=== PATIENT | female | born 1965 | race Caucasian/White ===

== ENCOUNTER 2017-09-04 08:36 | Emergency (ER) | payer BC ==
[~2017-09-04] VITALS: Ht 157.5 cm; Wt 69.4 kg
[2017-09-04 08:37] VITALS: Ht 157.5 cm; Wt 69.4 kg
--- NOTE | 2017-09-04 09:10 | ERD ---
ER Documentation Chief Complaint Chief Complaint lt hand and wrist swelling since monday HPI 51y/o female patient with no significant medical history,presents to the emergency department with friend c/o left hand and wrist pain, that started 3 days ago after a mechanical fall while she was gardening at her house. pain is dull, rated 8/10, radiated to entire upper extremity. The symptoms are associated with decreased range of motion and edema. Denies fever, chills, N/V/ D. No history of previous episodes. Treatment attempted: Tylenol with mild improvement of the symptoms ROS SYSTEMIC symptoms: no fever, chills, no night sweats, no weight loss EYE symptoms: No blurred vision, no eye discharge OTOLARYNGEAL symptoms: No hearing loss. No ear pain, no sore throat CARDIOVASCULAR symptoms: No chest pain or discomfort, no palpitations. PULMONARY symptoms: No dyspnea, no cough, no wheezing. GASTROINTESTINAL symptoms: No abdominal pain, no nausea, no vomiting, no diarrhea MUSCULOSKELETAL symptoms: Per HPI NEUROLOGY symptoms: No confusion, no syncope, no numbness or tingling. SKIN no rashes All systems reviewed and are negative except as per history of present illness. Medications Home Meds Active Scripts Hydrocodone/Acetaminophen ([place] 5-325 Tablet) 1 Each Tablet, 1 TAB PO Q6H Y for PAIN, #20 TAB Prov:SARIKA RM MD 09/04/17 Allergies Allergies: Coded Allergies: No Known Allergy (Unverified , 09/04/17) FmHx Denies family history of diabetes, hypertension, heart disease Physical Exam Vitals Vital Signs Date Time Temp Pulse Resp B/P Pulse Ox O2 Delivery O2 Flow Rate FiO2 09/04/17 08:37 98.2 82 18 173/88 98 Physical Exam Patient is in no acute distress, vital signs stable. Alert and fully oriented. EYES: PERRLA, EOMI, Sclera and conjunctiva appear normal. EARS: Canals clear, tympanic membranes WNL THROAT: Normal oropharynx. NECK: Supple, No lymphadenopathy. Full ROM without pain or tenderness. HEART: RRR, no rubs, murmurs, clicks or gallops. LUNGS: Clear to auscultation. ABDOMEN: Soft, non-tender without masses or hepatosplenomegaly. EXTREMITIES: No edema bilaterally. Left hand: Deformity seen at the wrist, with marked edema and decreased range of motion. Neurovascular in tact Results 24 hrs DIAGNOSTIC IMAGING REPORT Patient: IVON MEADOWS : 1965 Age: 51 Sex: F MR #: [id number] DOS: 09/04/17914 Ordering MD: SARIKA RM MD Location: FTE Room/Bed: PROCEDURE: XR Left Hand. CLINICAL INDICATION: Trauma due to a fall. Left hand pain. TECHNIQUE: Three views. Frontal lateral and oblique images of the left hand were obtained. COMPARISON: No prior studies are available for comparison. FINDINGS: There is an acute transverse fracture through the distal metaphysis of the radius with mild angulation apex-anterior. There is no other fracture and there is no dislocation. There is soft tissue swelling overlying the fracture Articular surfaces are intact. There is no lytic or blastic lesion. There is no radiopaque foreign body. IMPRESSION: 1. Acute transverse fracture through the distal metaphysis of the radius with mild angulation apex-anterior. 2. Overlying soft tissue swelling. 3. Otherwise unremarkable images of the left hand. RPTAT: QQ .Tevin Yates MD, MD Date Time Electronically viewed and signed by .Tevin Yates MD, MD on 09/04/2017 09:58 .R/ CC: SARIKA RM MD [place] [address] Radiology Main Line: [phone] DIAGNOSTIC IMAGING REPORT Patient: IVON MEADOWS : 1965 Age: 51 Sex: F MR #: [id number] DOS: 09/04/17914 Ordering MD: SARIKA RM MD Location: FTE Room/Bed: PROCEDURE: Left wrist radiographs. CLINICAL INDICATION: Trauma due to a fall. Left wrist pain. TECHNIQUE: 4 views. Frontal, lateral, and oblique. Scaphoid view. COMPARISON: No prior studies are available for comparison. FINDINGS: There is an acute transverse fracture through the distal metaphysis of the radius with mild angulation apex-anterior. There is no other fracture and there is no dislocation. There is soft tissue swelling overlying the fracture. Articular surfaces are intact. There is no lytic or blastic lesion. There is no radiopaque foreign body. IMPRESSION: 1. Acute transverse fracture through the distal metaphysis of the radius with mild angulation apex-anterior. 2. Overlying soft tissue swelling. 3. Otherwise unremarkable images of the left wrist. RPTAT: QQ .Tevin Yates MD, MD Date Time Electronically viewed and signed by .Tevin Yates MD, MD on 09/04/2017 10:00 .R/ CC: SARIKA RM MD Procedures/MDM Splint evaluation: Type: Short arm posterior Location: Left arm Position: good alignment in anatomical position Neurovascular intact 51y/o female patient umremarkable medical history, presents to the ED c/o left wrist pain and edema for 3 days. Vital signs stable, Physical exam unremarkable except for left wrist with deformity, edema, tender to palpation and decreased range of motion. Differential diagnosis include but not limited to: Ligament/tendon injury, dislocation, fracture, contusion. Less likely infection like cellulitis or abscess or septic arthritis. Pertinent Data: X-Rays: left wrist IMPRESSION: 1. Acute transverse fracture through the distal metaphysis of the radius with mild angulation apex-anterior. 2. Overlying soft tissue swelling. 3. Otherwise unremarkable images of the left hand. Physical examination and clinical presentation consistent most likely with left wrist fracture. During the ED course the patient had a splint placed with presenting overall improvement of the symptoms. Results and medical impression discussed with patient who agrees with management. The patient will be discharged home with a Rx for [place] needed for pain and a referral for orthopedic evaluation in the next 2-4 days Side effects of prescribed narcotic medications (drowsiness, constipation, habituation) were reviewed. Side effects of prescribed NSAID medication (GI distress, edema, bleeding, HTN) were reviewed. If symptoms persist, worsen or new symptoms develop, then patient is instructed to follow-up with the primary care provider. If the patient is unable to see the primary care provider, then return to the ED immediately. Departure Diagnosis: Primary Impression: Left radial fracture Condition: Stable Additional Instructions: Muchas baudilio por [facility] para sharma servicio. Esperamos que en sharma visita a la anusha de emergencia sharma problema medico haya sido solucionado y que se sienta mucho mejor. Para estar seguros que sharma mejoria sigue en proceso, le pedimos el favor de hacer joey francois de seguimiento medico con sharma doctor primario en los proximos 2-4 dean. Lleve con usted estos documentos y las medicinas recetadas. Si dat sintomas empeoran y no puede vincenzo a sharma doctor, por favor regrese a anusha de emergencia. En aaron que usted no tenga un mdico de atencin primaria: Llame al mdico o clnica comunitaria de referencia que aparece abajo chava las horas de consultorio para hacer joey francois para que le vean. CLINICAS: [facility] [phone] [facility] [phone] [address] [facility] [phone] [facility] [phone] [address] [facility] [phone] [address] [facility]. [phone] MD Sep 04, 2017 09:10
--- NOTE | 2017-09-04 09:10 | ERD ---
ER Documentation Chief Complaint Chief Complaint lt hand and wrist swelling since monday HPI 51y/o female patient with no significant medical history,presents to the emergency department with friend c/o left hand and wrist pain, that started 3 days ago after a mechanical fall while she was gardening at her house. pain is dull, rated 8/10, radiated to entire upper extremity. The symptoms are associated with decreased range of motion and edema. Denies fever, chills, N/V/ D. No history of previous episodes. Treatment attempted: Tylenol with mild improvement of the symptoms ROS SYSTEMIC symptoms: no fever, chills, no night sweats, no weight loss EYE symptoms: No blurred vision, no eye discharge OTOLARYNGEAL symptoms: No hearing loss. No ear pain, no sore throat CARDIOVASCULAR symptoms: No chest pain or discomfort, no palpitations. PULMONARY symptoms: No dyspnea, no cough, no wheezing. GASTROINTESTINAL symptoms: No abdominal pain, no nausea, no vomiting, no diarrhea MUSCULOSKELETAL symptoms: Per HPI NEUROLOGY symptoms: No confusion, no syncope, no numbness or tingling. SKIN no rashes All systems reviewed and are negative except as per history of present illness. Medications Home Meds Active Scripts Hydrocodone/Acetaminophen ([place] 5-325 Tablet) 1 Each Tablet, 1 TAB PO Q6H Y for PAIN, #20 TAB Prov:SARIKA RM MD 09/04/17 Allergies Allergies: Coded Allergies: No Known Allergy (Unverified , 09/04/17) FmHx Denies family history of diabetes, hypertension, heart disease Physical Exam Vitals Vital Signs Date Time Temp Pulse Resp B/P Pulse Ox O2 Delivery O2 Flow Rate FiO2 09/04/17 08:37 98.2 82 18 173/88 98 Physical Exam Patient is in no acute distress, vital signs stable. Alert and fully oriented. EYES: PERRLA, EOMI, Sclera and conjunctiva appear normal. EARS: Canals clear, tympanic membranes WNL THROAT: Normal oropharynx. NECK: Supple, No lymphadenopathy. Full ROM without pain or tenderness. HEART: RRR, no rubs, murmurs, clicks or gallops. LUNGS: Clear to auscultation. ABDOMEN: Soft, non-tender without masses or hepatosplenomegaly. EXTREMITIES: No edema bilaterally. Left hand: Deformity seen at the wrist, with marked edema and decreased range of motion. Neurovascular in tact Results 24 hrs DIAGNOSTIC IMAGING REPORT Patient: IVON MEADOWS : 1965 Age: 51 Sex: F MR #: [id number] DOS: 09/04/17914 Ordering MD: SARIKA RM MD Location: FTE Room/Bed: PROCEDURE: XR Left Hand. CLINICAL INDICATION: Trauma due to a fall. Left hand pain. TECHNIQUE: Three views. Frontal lateral and oblique images of the left hand were obtained. COMPARISON: No prior studies are available for comparison. FINDINGS: There is an acute transverse fracture through the distal metaphysis of the radius with mild angulation apex-anterior. There is no other fracture and there is no dislocation. There is soft tissue swelling overlying the fracture Articular surfaces are intact. There is no lytic or blastic lesion. There is no radiopaque foreign body. IMPRESSION: 1. Acute transverse fracture through the distal metaphysis of the radius with mild angulation apex-anterior. 2. Overlying soft tissue swelling. 3. Otherwise unremarkable images of the left hand. RPTAT: QQ .Tevin Yates MD, MD Date Time Electronically viewed and signed by .Tevin Yates MD, MD on 09/04/2017 09:58 .R/ CC: SARIKA RM MD [place] [address] Radiology Main Line: [phone] DIAGNOSTIC IMAGING REPORT Patient: IVON MEADOWS : 1965 Age: 51 Sex: F MR #: [id number] DOS: 09/04/17914 Ordering MD: SARIKA RM MD Location: FTE Room/Bed: PROCEDURE: Left wrist radiographs. CLINICAL INDICATION: Trauma due to a fall. Left wrist pain. TECHNIQUE: 4 views. Frontal, lateral, and oblique. Scaphoid view. COMPARISON: No prior studies are available for comparison. FINDINGS: There is an acute transverse fracture through the distal metaphysis of the radius with mild angulation apex-anterior. There is no other fracture and there is no dislocation. There is soft tissue swelling overlying the fracture. Articular surfaces are intact. There is no lytic or blastic lesion. There is no radiopaque foreign body. IMPRESSION: 1. Acute transverse fracture through the distal metaphysis of the radius with mild angulation apex-anterior. 2. Overlying soft tissue swelling. 3. Otherwise unremarkable images of the left wrist. RPTAT: QQ .Tevin Yates MD, MD Date Time Electronically viewed and signed by .Tevin Yates MD, MD on 09/04/2017 10:00 .R/ CC: SARIKA RM MD Procedures/MDM Splint evaluation: Type: Short arm posterior Location: Left arm Position: good alignment in anatomical position Neurovascular intact 51y/o female patient umremarkable medical history, presents to the ED c/o left wrist pain and edema for 3 days. Vital signs stable, Physical exam unremarkable except for left wrist with deformity, edema, tender to palpation and decreased range of motion. Differential diagnosis include but not limited to: Ligament/tendon injury, dislocation, fracture, contusion. Less likely infection like cellulitis or abscess or septic arthritis. Pertinent Data: X-Rays: left wrist IMPRESSION: 1. Acute transverse fracture through the distal metaphysis of the radius with mild angulation apex-anterior. 2. Overlying soft tissue swelling. 3. Otherwise unremarkable images of the left hand. Physical examination and clinical presentation consistent most likely with left wrist fracture. During the ED course the patient had a splint placed with presenting overall improvement of the symptoms. Results and medical impression discussed with patient who agrees with management. The patient will be discharged home with a Rx for [place] needed for pain and a referral for orthopedic evaluation in the next 2-4 days Side effects of prescribed narcotic medications (drowsiness, constipation, habituation) were reviewed. Side effects of prescribed NSAID medication (GI distress, edema, bleeding, HTN) were reviewed. If symptoms persist, worsen or new symptoms develop, then patient is instructed to follow-up with the primary care provider. If the patient is unable to see the primary care provider, then return to the ED immediately. Departure Diagnosis: Primary Impression: Left radial fracture Condition: Stable Additional Instructions: Muchas baudilio por [facility] para sharma servicio. Esperamos que en sharma visita a la anusha de emergencia sharma problema medico haya sido solucionado y que se sienta mucho mejor. Para estar seguros que sharma mejoria sigue en proceso, le pedimos el favor de hacer joey francois de seguimiento medico con sharma doctor primario en los proximos 2-4 dean. Lleve con usted estos documentos y las medicinas recetadas. Si dat sintomas empeoran y no puede vincenzo a sharma doctor, por favor regrese a anusha de emergencia. En aaron que usted no tenga un mdico de atencin primaria: Llame al mdico o clnica comunitaria de referencia que aparece abajo chava las horas de consultorio para hacer joey francois para que le vean. CLINICAS: [facility] [phone] [facility] [phone] [address] [facility] [address] [address] [address] [facility] [phone] [facility] [phone] [facility] [phone] [address] [facility]. [phone] MD Sep 04, 2017 09:10
--- NOTE | 2017-09-04 09:10 | ERD ---
ER Documentation Chief Complaint Chief Complaint lt hand and wrist swelling since monday HPI 51y/o female patient with no significant medical history,presents to the emergency department with friend c/o left hand and wrist pain, that started 3 days ago after a mechanical fall while she was gardening at her house. pain is dull, rated 8/10, radiated to entire upper extremity. The symptoms are associated with decreased range of motion and edema. Denies fever, chills, N/V/ D. No history of previous episodes. Treatment attempted: Tylenol with mild improvement of the symptoms ROS SYSTEMIC symptoms: no fever, chills, no night sweats, no weight loss EYE symptoms: No blurred vision, no eye discharge OTOLARYNGEAL symptoms: No hearing loss. No ear pain, no sore throat CARDIOVASCULAR symptoms: No chest pain or discomfort, no palpitations. PULMONARY symptoms: No dyspnea, no cough, no wheezing. GASTROINTESTINAL symptoms: No abdominal pain, no nausea, no vomiting, no diarrhea MUSCULOSKELETAL symptoms: Per HPI NEUROLOGY symptoms: No confusion, no syncope, no numbness or tingling. SKIN no rashes All systems reviewed and are negative except as per history of present illness. Medications Home Meds Active Scripts Hydrocodone/Acetaminophen ([place] 5-325 Tablet) 1 Each Tablet, 1 TAB PO Q6H Y for PAIN, #20 TAB Prov:SARIKA RM MD 09/04/17 Allergies Allergies: Coded Allergies: No Known Allergy (Unverified , 09/04/17) FmHx Denies family history of diabetes, hypertension, heart disease Physical Exam Vitals Vital Signs Date Time Temp Pulse Resp B/P Pulse Ox O2 Delivery O2 Flow Rate FiO2 09/04/17 08:37 98.2 82 18 173/88 98 Physical Exam Patient is in no acute distress, vital signs stable. Alert and fully oriented. EYES: PERRLA, EOMI, Sclera and conjunctiva appear normal. EARS: Canals clear, tympanic membranes WNL THROAT: Normal oropharynx. NECK: Supple, No lymphadenopathy. Full ROM without pain or tenderness. HEART: RRR, no rubs, murmurs, clicks or gallops. LUNGS: Clear to auscultation. ABDOMEN: Soft, non-tender without masses or hepatosplenomegaly. EXTREMITIES: No edema bilaterally. Left hand: Deformity seen at the wrist, with marked edema and decreased range of motion. Neurovascular in tact Results 24 hrs DIAGNOSTIC IMAGING REPORT Patient: IVON MEADOWS : 1965 Age: 51 Sex: F MR #: [id number] DOS: 09/04/17914 Ordering MD: SARIKA RM MD Location: FTE Room/Bed: PROCEDURE: XR Left Hand. CLINICAL INDICATION: Trauma due to a fall. Left hand pain. TECHNIQUE: Three views. Frontal lateral and oblique images of the left hand were obtained. COMPARISON: No prior studies are available for comparison. FINDINGS: There is an acute transverse fracture through the distal metaphysis of the radius with mild angulation apex-anterior. There is no other fracture and there is no dislocation. There is soft tissue swelling overlying the fracture Articular surfaces are intact. There is no lytic or blastic lesion. There is no radiopaque foreign body. IMPRESSION: 1. Acute transverse fracture through the distal metaphysis of the radius with mild angulation apex-anterior. 2. Overlying soft tissue swelling. 3. Otherwise unremarkable images of the left hand. RPTAT: QQ .Tevin Yates MD, MD Date Time Electronically viewed and signed by .Tevin Yates MD, MD on 09/04/2017 09:58 .R/ CC: SARIKA RM MD [place] [address] Radiology Main Line: [phone] DIAGNOSTIC IMAGING REPORT Patient: IVON MEADOWS : 1965 Age: 51 Sex: F MR #: [id number] DOS: 09/04/17914 Ordering MD: SARIKA RM MD Location: FTE Room/Bed: PROCEDURE: Left wrist radiographs. CLINICAL INDICATION: Trauma due to a fall. Left wrist pain. TECHNIQUE: 4 views. Frontal, lateral, and oblique. Scaphoid view. COMPARISON: No prior studies are available for comparison. FINDINGS: There is an acute transverse fracture through the distal metaphysis of the radius with mild angulation apex-anterior. There is no other fracture and there is no dislocation. There is soft tissue swelling overlying the fracture. Articular surfaces are intact. There is no lytic or blastic lesion. There is no radiopaque foreign body. IMPRESSION: 1. Acute transverse fracture through the distal metaphysis of the radius with mild angulation apex-anterior. 2. Overlying soft tissue swelling. 3. Otherwise unremarkable images of the left wrist. RPTAT: QQ .Tevin Yates MD, MD Date Time Electronically viewed and signed by .Tevin Yates MD, MD on 09/04/2017 10:00 .R/ CC: SARIKA RM MD Procedures/MDM Splint evaluation: Type: Short arm posterior Location: Left arm Position: good alignment in anatomical position Neurovascular intact 51y/o female patient umremarkable medical history, presents to the ED c/o left wrist pain and edema for 3 days. Vital signs stable, Physical exam unremarkable except for left wrist with deformity, edema, tender to palpation and decreased range of motion. Differential diagnosis include but not limited to: Ligament/tendon injury, dislocation, fracture, contusion. Less likely infection like cellulitis or abscess or septic arthritis. Pertinent Data: X-Rays: left wrist IMPRESSION: 1. Acute transverse fracture through the distal metaphysis of the radius with mild angulation apex-anterior. 2. Overlying soft tissue swelling. 3. Otherwise unremarkable images of the left hand. Physical examination and clinical presentation consistent most likely with left wrist fracture. During the ED course the patient had a splint placed with presenting overall improvement of the symptoms. Results and medical impression discussed with patient who agrees with management. The patient will be discharged home with a Rx for [place] needed for pain and a referral for orthopedic evaluation in the next 2-4 days Side effects of prescribed narcotic medications (drowsiness, constipation, habituation) were reviewed. Side effects of prescribed NSAID medication (GI distress, edema, bleeding, HTN) were reviewed. If symptoms persist, worsen or new symptoms develop, then patient is instructed to follow-up with the primary care provider. If the patient is unable to see the primary care provider, then return to the ED immediately. Departure Diagnosis: Primary Impression: Left radial fracture Condition: Stable Additional Instructions: Muchas baudilio por [facility] para sharma servicio. Esperamos que en sharma visita a la anusha de emergencia sharma problema medico haya sido solucionado y que se sienta mucho mejor. Para estar seguros que sharma mejoria sigue en proceso, le pedimos el favor de hacer joey francois de seguimiento medico con sharma doctor primario en los proximos 2-4 dean. Lleve con usted estos documentos y las medicinas recetadas. Si dat sintomas empeoran y no puede vincenzo a sharma doctor, por favor regrese a anusha de emergencia. En aaron que usted no tenga un mdico de atencin primaria: Llame al mdico o clnica comunitaria de referencia que aparece abajo chava las horas de consultorio para hacer joey francois para que le vean. CLINICAS: [facility] [phone] [address] [facility] [phone] [facility] [phone] [facility] [phone] [facility] [phone] [address] [facility]. [phone] MD Sep 04, 2017 09:10
--- NOTE | 2017-09-04 09:58 | RADRPT ---
PROCEDURE: XR Left Hand. CLINICAL INDICATION: Trauma due to a fall. Left hand pain. TECHNIQUE: Three views. Frontal lateral and oblique images of the left hand were obtained. COMPARISON: No prior studies are available for comparison. FINDINGS: There is an acute transverse fracture through the distal metaphysis of the radius with mild angulati on apex-anterior. There is no other fracture and there is no dislocation. There is soft tissue swelling overlying the fracture Articular surfaces are intact. There is no lytic or blastic lesion. There is no radiopaque foreign body. IMPRESSION: 1. Acute transverse fracture through the distal metaphysis of the radius with mild angulation apex- anterior. 2. Overlying soft tissue swelling. 3. Otherwise unremarkable images of the left hand. RPTAT: QQ .Tevin Yates MD, Date Time Electronically viewed and signed by .Tevin Yates MD, on 09/04/2017 09:58 .R/
--- NOTE | 2017-09-04 10:00 | RADRPT ---
PROCEDURE: Left wrist radiographs. CLINICAL INDICATION: Trauma due to a fall. Left wrist pain. TECHNIQUE: 4 views. Frontal, lateral, and oblique. Scaphoid view. COMPARISON: No prior studies are available for comparison. FINDINGS: There is an acute transverse fracture through the distal metaphysis of the radius with mild angulati on apex-anterior. There is no other fracture and there is no dislocation. There is soft tissue swelling overlying the fracture. Articular surfaces are intact. There is no lytic or blastic lesion. There is no radiopaque foreign body. IMPRESSION: 1. Acute transverse fracture through the distal metaphysis of the radius with mild angulation apex- anterior. 2. Overlying soft tissue swelling. 3. Otherwise unremarkable images of the left wrist. RPTAT: QQ .Tevin Yates MD, Date Time Electronically viewed and signed by .Tevin Yates MD, on 09/04/2017 10:00 .R/
[2017-09-04] MEDS ORDERED: HYDR-906 PO (10:47)
== END 2017-09-04 11:00 | disposition home or self-care (01) ==
LOC: FTE 08:36
DX: S59.292A Other physeal fracture of lower end of radius, left arm, initial encounter for closed fracture (principal); W18.39XA Other fall on same level, initial encounter; Y92.009 Unspecified place in unspecified non-institutional (private) residence as the place of occurrence of the external cause